=== PATIENT | male | born 1975 | race Caucasian/White ===

== ENCOUNTER 2018-10-05 13:40 | Emergency (ER) | payer OTHER ==
[2018-10-05 13:53] VITALS: BP 123/86
--- NOTE | 2018-10-05 14:06 | UC ---
Head Injury HPI - HPI Summary HPI Summary: head injury x 40 min ago s/p fall backward and hit the back of his head to the ground no LOC, no memory loss , denies any n/v , no change in vision feels fatigued - History Of Current Complaint Chief Complaint: UCHeadInjury Stated Complaint: FELL HIT HEAD Time Seen by Provider: 10/05/18 13:54 Hx Obtained From: Patient Onset/Duration: Sudden Onset, Lasting Minutes - 40 min ago Severity Currently: Moderate Severity Initially: Mild Pain Intensity: 1 Character: Dull Aggravating Factor(s): Nothing Alleviating Factor(s): Nothing Associated Signs And Symptoms: Negative: LOC (Time In Secs./Mins/Hrs), LOC Duration Unknown, Confusion, Memory Loss, Seizure, Epistaxis, Dental Malocclusion, Neck Pain, Nausea, Vomiting - Allergies/Home Medications Allergies/Adverse Reactions: Allergies Allergy/AdvReac Type Severity Reaction Status Date / Time ampicillin Allergy Hives Verified 10/05/18 13:54 Home Medications: Home Medications Escitalopram * [Lexapro 10 mg (NF)] 1 tab PO DAILY 10/05/18 [History Confirmed 10/05/18] Fluticasone DISKUS 100 MCG(NF) [Flovent Diskus 100 MCG(NF)] 1 admin INH DAILY [History Confirmed 10/05/18] PMH/Surg Hx/FS Hx/Imm Hx Previously Healthy: Yes - Surgical History Surgical History: None - Family History Known Family History: Negative: Diabetes - Social History Alcohol Use: Occasionally Substance Use Type: None Smoking Status (MU): Never Smoked Tobacco Review of Systems All Other Systems Reviewed And Are Negative: Yes Constitutional: Positive: Negative Skin: Positive: Negative Eyes: Positive: Negative ENT: Positive: Negative Respiratory: Positive: Negative Is Patient Immunocompromised?: No Physical Exam Triage Information Reviewed: Yes Appearance: Well-Appearing, No Pain Distress, Well-Nourished Vital Signs: Initial Vital Signs Temp 98 F 10/05/18 13:51 Pulse 76 10/05/18 13:51 Resp 17 10/05/18 13:51 BP 123/86 10/05/18 13:51 Pulse Ox 100 10/05/18 13:51 Vital Signs Reviewed: Yes Eye Exam: Normal Eyes: Positive: Conjunctiva Clear ENT: Positive: Normal ENT inspection, Hearing grossly normal, Pharynx normal Neck: Positive: Supple, Nontender, No Lymphadenopathy Respiratory: Positive: Chest non-tender, Lungs clear, Normal breath sounds Cardiovascular: Positive: RRR, No Murmur, Pulses Normal Abdominal Exam: Normal Abdomen Description: Positive: Nontender, Soft Bowel Sounds: Positive: Present Skin Exam: Normal UC Physical Exam Vital Signs On Initial Exam: Initial Vitals Temp Pulse Resp BP Pulse Ox 98 F 76 17 123/86 100 10/05/18 13:51 10/05/18 13:51 10/05/18 13:51 10/05/18 13:51 10/05/18 13:51 - Neurological Exam Neurological: Normal, Sensory/Motor Intact, CN Intact II-III, Normal Gait, Speech Normal Head Injury Course/Dx - Differential Dx/Diagnosis Provider Diagnosis: Concussion Discharge - Sign-Out/Discharge Documenting (check all that apply): Patient Departure All imaging exams completed and their final reports reviewed: No Studies - Discharge Plan Condition: Stable Disposition: HOME Patient Education Materials: Concussion (ED) Referrals: Dusty Aranda MD [Primary Care Provider] - 7 Days - Billing Disposition and Condition Condition: STABLE Disposition: Home
== END 2018-10-05 14:11 | disposition home or self-care (01) ==
LOC: UCEAST 13:40
DX: S06.0X0A Concussion without loss of consciousness, initial encounter (principal); W18.30XA Fall on same level, unspecified, initial encounter; Y92.9 Unspecified place or not applicable
CPT/HCPCS: 99211; G0463